=== PATIENT | male | born 1985 | race Asian ===

== ENCOUNTER 2016-12-17 13:47 | Emergency (ER) | payer OTHER ==
[~2016-12-17] VITALS: Ht 177.8 cm; Wt 78.5 kg
[~2016-12-17 13:47] MED LIST: IBUP-1955 PO; PANT20TA2 PO; RIVA10TA PO; SUCR1TAB26 PO
--- NOTE | 2016-12-17 14:42 | NUR ---
Patient discharged to home in stable conditon. Written and verbal after care instructions given. Patient verbalizes understanding of instructions.PT SAYS FEELS BETTER NOW AFTER THE EKG DONE.
== END 2016-12-17 14:44 | disposition home or self-care (01) ==
LOC: ER 13:47
DX: Z00.00 Encounter for general adult medical examination without abnormal findings (principal); I48.91 Unspecified atrial fibrillation
CPT/HCPCS: 93005; A4663

== ENCOUNTER 2017-06-05 05:40 | Emergency (ER) | payer OTHER ==
[~2017-06-05] VITALS: Ht 177.8 cm; Wt 90.7 kg
[~2017-06-05 05:40] MED LIST changes: -SUCR1TAB26 PO; +SUCR1TAB31 PO
[2017-06-05] MEDS ORDERED: ASPIRIN 81 MG TAB.CHEW PO ONE (05:45)
[2017-06-05] MEDS ORDERED: NITROGLYCERIN OINT 1 GM PACKET TP ONE ×2 (05:45→06:12)
--- NOTE | 2017-06-05 05:50 | NUR ---
CHRISTIANO WALKED INTO ER C/O CP X7 DAYS WHICH COMES AND GOES WITH SOB X2 DAYS
[2017-06-05] MEDS ORDERED: PROPAFENONE HCL 150 MG TABLET (05:53)
[2017-06-05] MEDS ORDERED: ASPIRIN EC 81 MG TABLET (05:53)
[2017-06-05] MEDS ORDERED: PROPRANOLOL 60 MG TABLET (05:53)
[2017-06-05 06:09] LABS: BASOPHILS % (AUTO) 0.8 % (0.0-2.0); EOSINOPHILS # (AUTO) 0.1 K/uL (0.0-0.7); HEMATOCRIT 52.7 % (40-50); HEMOGLOBIN 18.4 G/DL (14.0-18.0); LYMPHOCYTES # (AUTO) 1.9 K/UL (0.8-4.8); LYMPHOCYTES % (AUTO) 33.8 % (20.5-51.5); MEAN CORPUSCULAR HGB CONC 35 g/dL (32.0-37.0); MEAN CORPUSCULAR VOLUME 91.9 FL (82.0-92.0); MONOCYTES # (AUTO) 0.2 K/UL (0.1-1.30); MONOCYTES % (AUTO) 4.1 % (0.0-11.0); NEUTROPHILS # (AUTO) 3.4 K/UL (1.8-8.9); NEUTROPHILS % (AUTO) 59.3 % (38.5-71.5); PLATELET COUNT (AUTO) 180 K/UL (150-450); RED BLOOD CELL COUNT(AUTO) 5.74 MIL/UL (4.7-6.1); WHITE BLOOD COUNT (AUTO) 5.6 K/UL (4.0-11.2)
[2017-06-05] MEDS ORDERED: ASPIRIN 81 MG TAB.CHEW ONE (06:12)
[2017-06-05 06:14] LABS: CREATININE 1.1 mg/dL (0.6-1.3); POTASSIUM 4.3 mmol/L (3.5-5.1)
[2017-06-05 06:26] LABS: BILIRUBIN,DIRECT 0.1 mg/dL (0.0-0.2); BILIRUBIN,TOTAL 0.7 mg/dL (0.2-1.0); TOTAL PROTEIN, SERUM 8.2 g/dL (6.4-8.2)
--- NOTE | 2017-06-05 06:55 | NUR ---
[facility] DR BAE REQUESTED. WAITING FOR DR VITALE TO CALL BACK
--- NOTE | 2017-06-05 07:05 | NUR ---
DR BAE SPOKE WITH DR VITALE CARDIOLOGY
[2017-06-05] MEDS ORDERED: IV NORMAL SALINE 1000 ML BAG IV ONE (07:30)
[2017-06-05] MEDS ORDERED: IOHEXOL 350 100 ML INFUS..BTL ONE (07:42)
[2017-06-05] MEDS ORDERED: IV NORMAL SALINE 250 ML IV ONE (07:42)
[2017-06-05 09:22] VITALS: BP 150/85
--- NOTE | 2017-06-05 09:22 | NUR ---
IV removed. Catheter intact and site benign. Pressure and 4x4 gauze applied to site. No bleeding noted.
--- NOTE | 2017-06-05 09:23 | NUR ---
Patient discharged to home in stable conditon. Written and verbal after care instructions given. Patient verbalizes understanding of instructions.
[2017-06-05 10:56] LABS: EOSINOPHILS % (MANUAL) 2 % (0-8); LYMPHOCYTES % (MANUAL) 28 % (20-40); MONOCYTES % (MANUAL) 3 % (2-10); NEUTROPHILS % (MANUAL) 67 % (42-75)
== END 2017-06-05 09:24 | disposition home or self-care (01) ==
LOC: ER 05:42
DX: R07.9 Chest pain, unspecified (principal); I48.0 Paroxysmal atrial fibrillation; Z79.01 Long term (current) use of anticoagulants; I48.92 Unspecified atrial flutter
CPT/HCPCS: 36415; 70030-TC; 71010; 71275; 85025; 93005; A4663; J7030; J7050; Q9967